=== PATIENT | female | born 1940 | race American Indian/Alaskan Native ===

== ENCOUNTER 2018-08-14 13:57 | Emergency (ER) | payer MEDICARE ==
[2018-08-14 14:05] VITALS: BMI 34.0
[2018-08-14 14:09] VITALS: RESP 18; TEMP 98.2; O2SAT 98
--- NOTE | 2018-08-14 14:25 | C.PDOC ---
History Of Present Illness 78 y/o female with a PMHx of HTN and CHF, presents to the ED for evaluation of epistaxis that began 2 hours prior to arrival. Patient reports initially she had a 10 minute episode of epistaxis from the right nare, which stopped on its own. Bleeding then recurred, lasting approximately 10 minutes, and then stopped again. Patient then decided to come in for medical evaluation on the recommendation of her . She denies any current bleeding. Patient has had episodes of epistaxis in the past, last 1 month ago, which she was never evaluated for. No associated headache, sore throat, dizziness, palpitations, visual changes, chest pain, or SOB. She denies recent trauma or injury. Denies taking any blood thinners or aspirin. Patient took all of her blood pressure meds this morning. Time Seen by Provider: 08/14/18 14:14 Chief Complaint (Nursing): ENT Problem History Per: Patient History/Exam Limitations: None Onset/Duration Of Symptoms: Hrs (2) Current Symptoms Are (Timing): Gone Symptoms Have Been: Episodic Anticoagulant/Antiplatlet Use?: No Recent Aspirin Use: No Past Medical History Reviewed: Historical Data, Nursing Documentation, Vital Signs Vital Signs: Last Vital Signs Temp 98.2 F 08/14/18 14:05 Pulse 84 08/14/18 14:05 Resp 18 08/14/18 14:05 BP 133/81 08/14/18 14:05 Pulse Ox 98 08/14/18 14:05 - Medical History PMH: CHF, HTN Family History: States: Unknown Family Hx - Social History Hx Alcohol Use: No Hx Substance Use: No - Immunization History Hx Tetanus Toxoid Vaccination: No Hx Influenza Vaccination: No Hx Pneumococcal Vaccination: No Review Of Systems Constitutional: Negative for: Fever Eyes: Negative for: Vision Change ENT: Positive for: Other (Epistaxis). Negative for: Throat Pain Cardiovascular: Negative for: Chest Pain, Palpitations Respiratory: Negative for: Shortness of Breath Gastrointestinal: Negative for: Nausea, Vomiting Neurological: Negative for: Weakness, Headache, Dizziness Physical Exam - Physical Exam Appears: Well, Non-toxic, No Acute Distress, Other (Obese female) Skin: Warm, Dry, No Rash Head: Atraumatic, Normacephalic Eye(s): bilateral: Normal Inspection, PERRL, EOMI Nose: No Epistaxis (no active bleeding), No Tenderness, No Septal Hematoma, Other (Small amount of dried blood to right nare) Oral Mucosa: Moist Throat: Normal (oropharynx clear), No Erythema Neck: Normal ROM, Supple Chest: Symmetrical Cardiovascular: Rhythm Regular Respiratory: No Accessory Muscle Use, Other (No respiratory distress) Extremity: Normal ROM, Capillary Refill (<2s) Pulses: Left Radial: Normal, Right Radial: Normal Neurological/Psych: Oriented x3, Normal Speech, Normal Cranial Nerves, Normal Motor, Normal Sensation Gait: Steady ED Course And Treatment O2 Sat by Pulse Oximetry: 98 (RA) Pulse Ox Interpretation: Normal Medical Decision Making Medical Decision Making: Impression: Epistaxis, now resolved Patient with no active bleeding in the ED. Educated extensively on correct hemostasis technique. PT verbalized understanding. Advised PMD and ENT followup. Plan is to discharge patient home. Given rx for saline spray to go home with. Diagnostic testing results and plan of care discussed with patient. Strict instructions given regarding prescription use, importance of followup, and signs/symptoms to return to ER including intractable bleeding, headache, dizziness, syncope, or any other new/worsening symptoms. Pt verbalized understanding of discussion. Patient is A&Ox3, ambulating with steady gait, with vital signs stable for discharge. Disposition Counseled Patient/Family Regarding: Diagnosis, Rx Given - Disposition Referrals: Palomo Colón MD [Staff Provider] - Susi Richards MD [Medical Doctor] - Disposition: HOME/ ROUTINE Disposition Time: 14:35 Condition: STABLE Additional Instructions: Use saline spray 2 sprays in each nostril daily To stop bleeding, lean forward and hold nostrils with consistent pressure for 10 minutes Followup with ENT tomorrow Followup with primary doctor tomorrow Return to ER with any new/worsening symptoms Prescriptions: Sodium Chloride [Saline Nasal [place]] 2 spr NS DAILY #1 bottle Instructions: Nosebleeds (DC) Forms: [employer] ([place]) - POA Present On Arrival: None - Clinical Impression Clinical Impression: Epistaxis - PA / HEAD BONE GRINDER / Resident Statement MD/DO has reviewed & agrees with the documentation as recorded. - Scribe Statement The provider has reviewed the documentation as recorded by the Scribe Ailyn Nance All medical record entries made by the Scribe were at my direction and personally dictated by me. I have reviewed the chart and agree that the record accurately reflects my personal performance of the history, physical exam, medic al decision making, and the department course for this patient. I have also personally directed, reviewed, and agree with the discharge instructions and disposition.
[2018-08-14 14:46] VITALS: BP 120/70; PULSE 75
== END 2018-08-14 14:46 | disposition home or self-care (01) ==
LOC: C.ER 13:57
DX: R04.0 Epistaxis (principal)